=== PATIENT | male | born 1965 | race Caucasian/White ===

== ENCOUNTER 2022-02-01 10:07 | Emergency (ER) | payer BC ==
[2022-02-01 10:42] LABS: #Monocytes 0.4 10x3/uL (0.0-1.1); #Neutrophils 4.1 10x3/uL (1.5-8.4); %Basophils 0.2 % (0.0-2.0); %Eosinophils 0.5 % (0.0-6.0); %Lymphocytes 24.2 % (18.0-47.0); %Monocytes 6.9 % (0.0-10.0); Hemoglobin 15.6 g/dL (13.5-17.5); Mean Corpuscular Hemoglobin 30.5 pg (27.0-33.0); Mean Corpuscular Volume 89.6 fl (81.2-95.1); Mean Platelet Volume 9.4 fl (7.4-10.4); Platelet Count 219 10x3/uL (150-450); Red Blood Cell (RBC) Count 5.12 10x6/uL (4.32-5.72); White Blood Cell (WBC) Count 6.1 10x3/uL (3.5-10.5)
[2022-02-01 10:44] LABS: ALT (SGPT) 25 U/L (8-55); AST (SGOT) 24 U/L (5-34); Albumin 4.4 g/dL (3.5-5.0); Alkaline Phosphatase 54 U/L (40-110); Anion Gap 11 mmol/L (10-20); BUN (Urea Nitrogen) 14 mg/dL (8.4-25.7); Bilirubin, Total 1.1 mg/dL (0.2-1.2); Calc. Creatinine Clearance 0 mL/min (70-130); Calcium 9.6 mg/dL (7.8-10.44); Carbon Dioxide 26 mmol/L (22-29); Chloride 103 mmol/L (98-107); Estimated GFR 60; Globulin 2.6 g/dL (2.4-3.5); Glucose 135 mg/dL (70-105); Lipase 26 U/L (8-78); Sodium 136 mmol/L (136-145)
[2022-02-01] MEDS ORDERED: Iopamidol 300 61% 100 ML VIAL FS ONE (15:56)
== END 2022-02-01 15:00 | disposition home or self-care (01) ==
LOC: CSHERS 10:07
DX: R07.89 Other chest pain (principal)
CPT/HCPCS: 36415; 71045; 71275; 80053; 83690; 84484; 85025; 93005; 96360; Q9967